=== PATIENT | female | born 1990 | race Caucasian/White ===

== ENCOUNTER 2020-02-20 10:56 | Emergency (ER) | payer MEDICAID, OTHER ==
[2020-02-20 11:09] VITALS: BP 135/100; PULSE 116
[2020-02-20] MEDS ORDERED: Lidocaine 1% 10 ML MDV INJECT ONE (11:24)
[2020-02-20] MEDS ORDERED: Ondansetron 4 MG Tab.DIS PO ONE (11:27)
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
== END 2020-02-20 12:40 | disposition home or self-care (01) ==
LOC: JD.ED 10:56
DX: S61.412A Laceration without foreign body of left hand, initial encounter (principal); F17.210 Nicotine dependence, cigarettes, uncomplicated; F31.9 Bipolar disorder, unspecified; Z88.5 Allergy status to narcotic agent; Z88.2 Allergy status to sulfonamides; Z79.899 Other long term (current) drug therapy; W25.XXXA Contact with sharp glass, initial encounter
CPT/HCPCS: 12001; 99283; A9270; J2001; 99282

== ENCOUNTER 2021-01-12 16:31 | Emergency (ER) | payer SELFPAY ==
[2021-01-12 17:14] VITALS: BP 147/101; PULSE 120
--- NOTE | 2021-01-12 18:21 | EDM.PDOC ---
ED HPI GENERAL MEDICAL PROBLEM - General Chief Complaint: Lower Extremity Injury/Pain Stated Complaint: RT FOOT INJURY Time Seen by Provider: 01/12/21 16:48 Source of Information: Reports: Patient, RN Notes Reviewed History Limitations: Reports: No Limitations - History of Present Illness INITIAL COMMENTS - FREE TEXT/NARRATIVE: Patient is a 30-year-old female presenting to the emergency department with complaints of right foot pain. She reports that pain initially began 2 weeks ago. Foot was painful and swollen. The swelling did resolve, however 2 days ago she "stepped wrong "when she was going down some stairs and felt "something move" and the pain returned. Denies any known injury to the foot, but does state that she walks barefoot frequently and also walks on the side of her foot. Denies any history of previous fractures to this extremity. Right Feet Pain Score (Numeric/FACES): 8 - Related Data Allergies Allergy/AdvReac Type Severity Reaction Status Date / Time codeine Allergy Severe Rash Verified 01/12/21 16:49 Sulfa (Sulfonamide Allergy Severe Vomiting Verified 01/12/21 16:49 Antibiotics) Home Meds: Home Meds ARIPiprazole [Abilify] 5 mg PO DAILY #30 tab 10/28/15 [Rx] predniSONE [Prednisone] 20 mg PO ASDIRECTED #15 tablet 01/12/21 [Rx] Past Medical History - Past Health History Medical/Surgical History: Denies Medical/Surgical History Psychiatric History: Reports: Anxiety, Bipolar, Depression, Mood Swings, Panic Attack - Infectious Disease History Infectious Disease History: Reports: Chicken Pox Social & Family History - Family History Family Medical History: No Pertinent Family History - Tobacco Use Tobacco Use Status *Q: Current Every Day Tobacco User Years of Tobacco use: 16 Packs/Tins Daily: 0.5 - Caffeine Use Caffeine Use: Reports: Coffee, Soda - Recreational Drug Use Recreational Drug Use: Yes Recreational Drug Type: Reports: Methamphetamine Recreational Drug Use Frequency: Daily Review of Systems - Review of Systems Review Of Systems: Comprehensive ROS is negative, except as noted in HPI. ED EXAM, GENERAL - Physical Exam Exam: See Below Exam Limited By: No Limitations General Appearance: Alert, WD/WN, No Apparent Distress Respiratory/Chest: No Respiratory Distress, Lungs Clear, Normal Breath Sounds, No Accessory Muscle Use, Chest Non-Tender Cardiovascular: Normal Peripheral Pulses, Regular Rate, Rhythm, No Edema, No Gallop, No JVD, No Murmur, No Rub Extremities: Other (Swelling and tenderness to palpation to the dorsal mid and lateral right foot. No ecchymosis or obvious deformity.) Neurological: Alert, Oriented, CN II-XII Intact, Normal Cognition, Normal Gait, Normal Reflexes, No Motor/Sensory Deficits Course - Vital Signs Last Recorded V/S: Last Vital Signs Temp 97.4 F 01/12/21 16:48 Pulse 120 H 01/12/21 16:48 Resp 20 01/12/21 16:48 BP 147/101 H 01/12/21 16:48 Pulse Ox 98 01/12/21 16:48 - Orders/Labs/Meds Orders: Active Orders 24 hr Category Date Time Status Foot Comp Min 3V Rt [CR] Stat Exams 01/12/21 16:52 Taken - Re-Assessments/Exams Free Text/Narrative Re-Assessment/Exam: 01/12/21 18:20 X-ray of the right foot reviewed by myself and Dr. Perry shows no acute fractures. Patient is likely suffering from tendinitis. She was started on prednisone for treatment of this. I will send referral to research and development scientist, Dr. Rg for follow-up. Discharge instructions as documented. Departure - Departure Time of Disposition: 18:20 Disposition: Home, Self-Care 01 Condition: Good Clinical Impression: Tendinitis of ankle or foot - Discharge Information *PRESCRIPTION DRUG MONITORING PROGRAM REVIEWED*: No *COPY OF PRESCRIPTION DRUG MONITORING REPORT IN PATIENT MELANIE: No Prescriptions: predniSONE [Prednisone] 20 mg PO ASDIRECTED #15 tablet Instructions: Tendinitis Referrals: Vineet Rg II, DPM [Physician] - Additional Instructions: You were seen in the emergency department today for pain and swelling to your right foot. X-rays were completed and showed no evidence of fracture. As we discussed, you are likely suffering from tendinitis which is inflammation of the tendons of the foot. You been started on prednisone for treatment this. You may take Tylenol and ibuprofen as needed for discomfort. Wrapping the foot may be that beneficial. Referral has been sent to research and development scientist, Dr. Rg. Recommend contacting his office tomorrow to set up a follow-up appointment. Return to ER for any new or worsening symptoms of concern. Sepsis Event Note (ED) - Evaluation Sepsis Screening Result: No Definite Risk - Focused Exam Vital Signs: Vital Signs Temp Pulse Resp BP Pulse Ox 01/12/21 16:48 97.4 F 120 H 20 147/101 H 98 - My Orders Last 24 Hours: My Active Orders 01/12/21 16:52 Foot Comp Min 3V Rt [CR] Stat - Assessment/Plan Last 24 Hours: My Active Orders 01/12/21 16:52 Foot Comp Min 3V Rt [CR] Stat
--- NOTE | 2021-01-13 08:05 | CR ---
Right foot: 4 views of the right foot were obtained. Comparison: No prior foot exam is available. Joint spaces are preserved. No acute fracture, dislocation or other bony abnormality is appreciated. Impression: 1. Nothing acute is seen on right foot exam. Diagnostic code #1
== END 2021-01-12 18:36 | disposition home or self-care (01) ==
LOC: JD.ED 16:31
DX: M77.51 Other enthesopathy of right foot and ankle (principal); Z72.0 Tobacco use; Z88.6 Allergy status to analgesic agent; Z88.2 Allergy status to sulfonamides
CPT/HCPCS: 73630-26-RT; 73630-RT; 99283; 99283-25